=== PATIENT | female | born 1960 | race Caucasian/White ===

== ENCOUNTER → 2017-09-07 07:08 | Day surgery (SDC) | payer BC ==
[~2017-09-07 07:08] MED LIST: Buffered Lidocaine 0.9% SYRIN* 5 ML/SYR SYRINGE INTRADERM ONE; Buffered Lidocaine 0.9% SYRIN* 5 ML/SYR SYRINGE ONE; Bupivacaine 0.5% SDV PF* 30ML VIAL ONE; Clindamycin 900 MG IVPREMIX(* 900 MG/50 ML SDV IV ONE; Ibuprofen TAB* 600 MG PO PRN; Lidocaine 1% MPF wEPI 200,000* 30 ML SDV ONE; Midazolam* 1 MG/ML 2 ML VIAL (2 MG) ONE; Naloxone* 0.4 MG/ML 1 ML VIAL IV PRN; fentaNYL* 50 MCG/ML 2 ML VIAL (100 MCG VIAL) ONE
--- NOTE | 2017-09-07 09:51 | BRIEFOPN ---
Brief Operative Note - Surgery Procedures: Procedures BILAT ENDOSC DIVIS TUBE (10/31/94) 09/07/17 Op Note (dictated) Pre-op dx: breast cancer Post-op dx: same Procedure: Power port placement Surgeon: Bartolo Asst: none Anesth: local-MAC EBL: 2 cc Complications: none SCDs on during surgery Abx: given pre-op Pt. tolerated procedure well and was transferred to in a stable condition. [facility]
--- NOTE | 2017-09-07 10:24 | RAD ---
Indication: Status post line placement. Single frontal view of the chest performed at 1005 hours was reviewed. No prior study is available. No mediastinal shift is noted. Heart is of normal size and configuration. Lung singh appear clear. Central line is in place with the tip in the superior vena cava. No pneumothorax is noted. IMPRESSION: CENTRAL LINE IN PLACE. NO PNEUMOTHORAX IS NOTED.
[2017-09-07 10:33] VITALS: BP 100/73
--- NOTE | 2017-09-07 10:36 | RAD ---
CPT II Codes: G9500 INDICATION: PowerPort placement. Fluoroscopic services provided for referring physician. 39.3 seconds of fluoroscopy time was used. There is placement of a PowerPort in the superior vena cava. IMPRESSION: Fluoroscopic services provided for referring physician.
--- NOTE | 2017-09-07 15:29 | OP ---
CC: [facility]; Dr. Glo Christensen * DATE OF OPERATION: 09/07/17 - [facility] DATE OF : 64 SURGEON: Clarissa Mcfarland MD TOOL ENGINEER: There was no molding line assistant for this case. PRE-OP DIAGNOSIS: Breast cancer. POST-OP DIAGNOSIS: Breast cancer. OPERATIVE PROCEDURE: Power port placement. INDICATIONS: Ms. Page is a 57-year-old woman recently diagnosed with breast cancer who is to undergo neoadjuvant chemotherapy. She, therefore needed a Power port placed. DESCRIPTION OF PROCEDURE: She was brought to the operating room, placed on the OR table in a supine position and given IV sedation. Chest was prepped and draped in the usual sterile fashion. After infiltrating with local anesthetic, using a Seldinger technique a wire was placed into the left subclavian vein. This took a couple of attempts as initially it did not advance. Then a port pocket was created. This was done by infiltrating the skin of the chest wall with local anesthetic making an incision and creating a pocket with electrocautery inferiorly. Once the pocket was of a size adequate enough to accommodate the port, the catheter was tunneled from the port pocket site to the wire exit site. A dilator and introducer were placed over the wire and the dilator and wire were removed. The catheter was advanced through the introducer into the left subclavian vein under fluoroscopic visualization. Then the introducer was peeled away. The catheter was drawn back to an appropriate depth, trimmed to an appropriate length, and then attached to the port. The port was inserted into the pocket and secured to the chest wall with 2-0 Prolene stitches. The port function was checked and found to be adequate. The closure was accomplished. This was done with 3-0 Vicryl in the subcutaneous layer and the skin was closed with 4-0 Prolene in the subcuticular fashion. Steri-Strips and a dry sterile dressing were applied. A Montero needle was left in place for chemotherapy which is scheduled to start today and this Montero needle function was also checked and it was flushed. All sponge and instrument counts were correct, the patient tolerated the procedure well and was transferred to Recovery in a stable condition. [id number]/[facility] #: [id number] [facility]
== END | disposition home or self-care (01) ==
LOC: OR 07:08
PROVIDERS: ATTEND Surgery
DX: C50.411 Malignant neoplasm of upper-outer quadrant of right female breast (principal); Z87.891 Personal history of nicotine dependence; F41.9 Anxiety disorder, unspecified; K58.9 Irritable bowel syndrome, unspecified; J30.89 Other allergic rhinitis; M19.90 Unspecified osteoarthritis, unspecified site
CPT/HCPCS: 71045; 76000; C1788; J2001; J2250; J3010

== ENCOUNTER 2018-01-18 08:43 | Day surgery (SDC) | payer BC ==
--- NOTE | 2018-01-14 20:12 | HP ---
AMENDED REPORT NOW INCLUDES DESIGNATED COSIGNER CC: Glo Christensen MD; Esther Hernandez MD; Tiburcio Lang MD * ADMISSION HISTORY AND PHYSICAL: DATE OF ADMISSION: 01/18/18 ATTENDING SURGEON: Clarissa Mcfarland MD * (KIARA Bettencourt, dictating) CHIEF COMPLAINT: Right breast cancer. HISTORY OF PRESENT ILLNESS: This is a 57-year-old otherwise healthy female, who first noted a right breast mass on self-exam in July of this year. This led to a mammogram and ultrasound done on 08/13/17, the mammogram showing a 2.5 cm nodular density in the right breast at the 9 to 10 o'clock position that corresponded with the palpable lesion. An ultrasound done that same day confirmed the presence of a solid irregular mass suspicious for carcinoma. Also noted was an enlarged right axillary lymph node which subsequently was biopsied and was negative. An ultrasound-guided core biopsy of the right breast mass on 08/16/17 did show an invasive ductal carcinoma which was triple negative. The patient has been receiving neoadjuvant chemotherapy under the direction of Dr. Hernandez which she completed on 12/14/17. The patient apparently had a significant response from chemotherapy with the lesion no longer clearly palpable (per Dr. Mcfarland's note). The initial exam showed a hard mass in the right breast, whereas most recent exam on 01/02/18 showed some thickening in the upper outer quadrant of the right breast but no discrete mass. Likewise, there is no palpable cervical, supraclavicular or axillary adenopathy. The patient did undergo CT scan of the chest, abdomen, and pelvis which was normal other than the aforementioned right breast mass and somewhat enlarged right axillary lymph node. A bone scan done the same date was normal and the subsequent MRI was normal by the patient's report. There is no known family history of breast cancer. The patient was seen initially by Dr. Mcfarland on 08/29/17 and more recently on 01/02/18. Power port had been previously placed for chemotherapy and it is under consideration for removal at the time of her upcoming surgery. PAST MEDICAL HISTORY: Breast cancer, irritable bowel syndrome (currently controlled with diet alone), anxiety. PAST SURGICAL HISTORY: PowerPort placement in August 2017, tubal ligation ( complicated by injury to one of the gastrointestinal organs requiring additional hospital stay and antibiotics but with no long-term problems). She has also had a prior . CURRENT MEDICATION: Tylenol 325 mg p.r.n. (the patient recently completed neoadjuvant chemotherapy on 12/14/17). DRUG ALLERGIES: PENICILLIN and SULFA (the patient was told she had reactions to these as a child, but is unsure of what reaction). FAMILY HISTORY: Negative as far as anesthesia problems, bleeding or clotting disorders and also negative as far as known history of breast or ovarian cancer. SOCIAL HISTORY: The patient is . She has grown children. She has previously worked in [employer] but is not working at the present time. She is a former smoker who quit 28 years ago. She drinks on average less than or equal to 1 drink per day. She denies any other recreational drug use. REVIEW OF SYSTEMS: General: No recent constitutional symptoms or acute illnesses. She did lose approximately 25 pounds in the past 6 months, some of which she attributes to stress and anxiety. She states that her weight is currently stable. HEENT: No problems reported. Cardiovascular: No chest pain , palpitations, history of heart murmur. Respiratory: No history of asthma, chronic cough or shortness of breath. GI: No recent problems reported. She did undergo Cologuard testing within the past year which she reports was normal. : No problems reported. 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 Endocrine: No diabetes or thyroid dysfunction. PHYSICAL EXAMINATION GENERAL: Well-nourished, well-developed female in no acute distress. VITAL SIGNS: Height 65 inches, weight 114 pounds. Blood pressure 98/68, pulse 72, respirations 16. HEENT: Pupils equal and round, reactive. EOMs intact. No conjunctival pallor. Oropharynx: Teeth in good repair. No intraoral lesions. NECK: No cervical or supraclavicular lymphadenopathy, though her anterior cervical nodes are prominent. No palpable neck masses or thyromegaly. LUNGS: Clear to auscultation. No rales or wheezes. HEART: Regular rate and rhythm. No murmur appreciated. There is a PowerPort visible and palpable in the left upper chest wall. BREASTS: Not reexamined (see above). Per Dr. Mcfarland's exam, no palpable left breast masses. ABDOMEN: Soft, nontender to palpation. No palpable masses or organomegaly. BACK: No spinous process or CVA tenderness. EXTREMITIES: No edema. GENITALIA/RECTAL: Not done. NEUROLOGICAL: Grossly intact. SKIN: Warm and dry. No suspicious rashes or lesions noted. IMPRESSION: Right breast cancer. PLAN: Excision right breast cancer (following needle localization); central lymph node biopsy. There was also discussion regarding possible removal of her port. This will be confirmed with Dr. Mcfarland and added to the procedure if indicated. KIARA BETTENCOURT [id number]/[facility] #: [id number] ANNA
[~2018-01-18 08:43] MED LIST changes: -Buffered Lidocaine 0.9% SYRIN* 5 ML/SYR SYRINGE ONE; -Bupivacaine 0.5% SDV PF* 30ML VIAL ONE; -Clindamycin 900 MG IVPREMIX(* 900 MG/50 ML SDV IV ONE; +Famotidine IV* 10 MG/ML 2 ML (20 mg) IV ONE; -Ibuprofen TAB* 600 MG PO PRN; -Lidocaine 1% MPF wEPI 200,000* 30 ML SDV ONE; -Midazolam* 1 MG/ML 2 ML VIAL (2 MG) ONE; -Naloxone* 0.4 MG/ML 1 ML VIAL IV PRN; -fentaNYL* 50 MCG/ML 2 ML VIAL (100 MCG VIAL) ONE
[2018-01-18] MEDS ORDERED: Lidocaine 2.5%/Prilocain 2.5%* 5 GM TUBE ONE (08:53)
[2018-01-18] MEDS ORDERED: Midazolam* 1 MG/ML 5 ML VIAL (5 MG) ONE (11:49)
[2018-01-18] MEDS ORDERED: Lidocaine 2% PF * 5 ML VIAL ONE (11:49)
[2018-01-18] MEDS ORDERED: Ondansetron INJ* 2 MG/ML VIAL ONE (11:49)
[2018-01-18] MEDS ORDERED: Propofol* 10 MG/ML 20 ML BTL IV PUSH ONE ×3 (11:49→13:57)
[2018-01-18] MEDS ORDERED: fentaNYL* 50 MCG/ML 2 ML VIAL (100 MCG VIAL) ONE ×3 (11:49→13:57)
[2018-01-18] MEDS ORDERED: KETAMINE HCL* 50 MG/ML 10 ML VIAL ONE (11:49)
[2018-01-18] MEDS ORDERED: Ketorolac INJ* 30 MG/ML 1 ML VIAL ONE (11:49)
[2018-01-18] MEDS ORDERED: Dexamethasone IV* 4 MG/ML 1 ML (4 MG) ONE (11:49)
[2018-01-18] MEDS ORDERED: ceFAZolin 2 GM PREMIX in ORs 2 GM/50 ML BAG IVPB ONE (12:24)
[2018-01-18] MEDS ORDERED: Heparin VIAL(*) 5000 UNITS/ML VIAL (FIVE THOUSAND) ONE (12:24)
[2018-01-18] MEDS ORDERED: Famotidine IV* 10 MG/ML 2 ML (20 mg) ONE (12:24)
[2018-01-18] MEDS ORDERED: Methylene Blue 0.5 %* 50 MG/10 ML AMP IV ONE (12:38)
[2018-01-18] MEDS ORDERED: Bupivacaine 0.5% W/EPI SDV* 30 ML VIAL ONE (12:39)
[2018-01-18] MEDS ORDERED: Lidocaine 1% INJ* 10 MG/ML 30 ML SDV ONE (12:39)
[2018-01-18] MEDS ORDERED: Midazolam* 1 MG/ML 2 ML VIAL (2 MG) ONE (13:10)
[2018-01-18] MEDS ORDERED: Ondansetron ODT TAB* 4 MG PO PRN (13:27)
[2018-01-18] MEDS ORDERED: fentaNYL* 50 MCG/ML 2 ML VIAL (100 MCG VIAL) IV PRN (13:27)
[2018-01-18] MEDS ORDERED: Naloxone* 0.4 MG/ML 1 ML VIAL IV PRN (13:27)
[2018-01-18] MEDS ORDERED: EPHEDrine (Pressors)* 50 MG/ML VIAL ONE (13:37)
--- NOTE | 2018-01-18 15:10 | BRIEFOPN ---
Brief Operative Note - Surgery Procedures: Procedures BILAT ENDOSC DIVIS TUBE (10/31/94) 01/18/18 Op NOte Pre-op dx: right breast cancer Post-op dx: same Procedure: needle localization excision (x2) of right breast cancer and sentinel lymph node biopsy and power port removal. Surgeon: Bartolo Asst: Nancie SALDANA Anesth: local MAC EBL: 25 cc Complications: none SCDs on during surgery Abx: given pre-op Pt. tolerated procedure well and was transferred to in a stable condition. [facility]
[2018-01-18] MEDS ORDERED: HYDROcodone/ACETAMIN 5-325 MG* 1 TAB PO PRN ×2 (15:11)
[2018-01-18 15:48] VITALS: BP 126/84
--- NOTE | 2018-01-19 06:26 | OP ---
[facility]: [facility] OPERATIVE REPORT: DATE OF OPERATION: 01/18/18 DATE OF : 64 SURGEON: Clarissa Mcfarland MD ROOFING TECHNICIAN: KIARA [place] student. PRE-OP DIAGNOSIS: Right breast cancer. POST-OP DIAGNOSIS: Right breast cancer. OPERATIVE PROCEDURE: Needle localization excision of right breast cancer and sentinel lymph node bio psy and PowerPort removal. INDICATIONS: Ms. Page is a 57-year-old woman, who has undergone neoadjuvant chemotherapy, which l eft 2 small foci of breast cancer in the right breast. These were nonpalpable, so plans were made fo r needle localization and sentinel node biopsy. DESCRIPTION OF PROCEDURE: On the morning of surgery, she underwent needle localization without diffi culty and sentinel lymph node localization without difficulty and was brought to the operating room. She was placed on the OR table in the supine position and given IV sedation. The right breast and l eft chest wall were prepped and draped in the usual sterile fashion. After infiltrating with local a nesthetic, a curvilinear elliptical incision encompassing the inferior most wire was made. Subcutane ous tissue was then divided with electrocautery to excise the mass of tissue from around the wire. T his was marked in usual fashion and handed off as a specimen. Hemostasis was assured with electrocau fiordaliza and then closure was accomplished using 3-0 Vicryl in the subcutaneous layer and the skin was cl osed with 4-0 Prolene in the subcuticular fashion. Attention was then turned to the superior wire. Here, again, local anesthetic was instilled into the skin and then a curvilinear elliptical incision was made. Subcutaneous tissue was divided with elect rocautery to excise the mass of tissues from around the wire. This was then handed off as a specimen . Hemostasis was assured with electrocautery and once this appeared adequate, closure was accomplish ed with 3-0 Vicryl in the subcutaneous layer and 4-0 Surgipro in a subcuticular fashion. At this poi nt, it was recognized that we had not put clips in to john the cavity, so the skin stitches were jo ann kimberlyn from those sites and plans were made to reapproximate the skin at the end of the case after placi ng clips. Attention was then turned to the axilla. Here, using the navigator, the proximal location of the sentinel node was identified and then a curvilinear incision in the inferior axilla was made a round this area. Subcutaneous tissue was divided with electrocautery down to the level of the axilla ry fat pad. This was grasped and then search was made for the sentinel node. It was identified in t he superficial axillary fat pad and so it was dissected free from surrounding tissue using clips to c ontrol the small lymphatic and blood vessels that approached the gland. The in situ counts were arou nd 2100, the ex vivo counts were around 4100, and then the axillary bed counts were around 7. This c onfirmed that the specimen removed was indeed the axillary node, so closure was accomplished. This w as done with 3-0 Vicryl in the subcutaneous layer and the skin was closed with 4-0 Prolene in a subcu ticular fashion. Attention was turned to the breast incisions where a Vicryl stitch was cut was from the middle portion of the superior incision. Clips were then placed in the cavity through this open area and it was recognized that the 2 cavities communicated on their adjoining wall, so access to th e inferior site was achieved through the superior site within the clips. Then, a 3-0 Vicryl stitch w as used to close the opening that had been made and the skin of both sites were closed with 4-0 Prole ne in the subcuticular fashion. Steri-Strips and a dry sterile dressing was applied. Then, attentio n was turned to the PowerPort. After infiltrating with local anesthetic, an incision was made over t he scar from the PowerPort placement and then subcutaneous tissue was divided with electrocautery belinda n to the hub of the PowerPort. It was grasped and the catheter was dissected free from surrounding t issue and withdrawn from its tract. The port was elevated and its anchoring stitches were cut and it was withdrawn from the cavity and handed off. Then, the port pocket was cauterized on its lining an d then closure was accomplished with 3-0 Vicryl in the subcutaneous layer and the skin was closed wit h 4-0 Prolene in the subcuticular fashion. Steri-Strips and a dry sterile dressing were applied. Al l sponge and instrument counts were correct. The patient tolerated the procedure well and was transf erred to Recovery in a stable condition. [id number]/[facility] #: [id number]
== END 2018-01-18 15:50 | disposition home or self-care (01) ==
LOC: OR 08:43
PROVIDERS: ATTEND Surgery
DX: C50.911 Malignant neoplasm of unspecified site of right female breast (principal); Z87.891 Personal history of nicotine dependence; F41.9 Anxiety disorder, unspecified
CPT/HCPCS: 78195; 88307; 88342; A9270-GY; A9541; J0690; J1100; J1644; J1885; J2250; J2405; J2704; J3010